=== PATIENT | female | born 1990 | race Two or more races ===

== ENCOUNTER 2017-07-01 12:52 | Day surgery (SDC) | payer OTHER ==
[2017-07-01] MEDS ORDERED: MIDAZOLAM 1 MG/ML 2 ML INJ (15:31)
[2017-07-01] MEDS ORDERED: FENTAnyl 50 MCG/ML VIAL (15:31)
== END 2017-07-01 19:29 | disposition home or self-care (01) ==
LOC: GIL 12:52
DX: K29.50 Unspecified chronic gastritis without bleeding (principal); K44.9 Diaphragmatic hernia without obstruction or gangrene; K31.7 Polyp of stomach and duodenum
CPT/HCPCS: 43239; 84703; 88305; 88312; 88313